=== PATIENT | female | born 1990 | race Caucasian/White ===

== ENCOUNTER 2016-10-28 01:17 | Inpatient (IN) | payer OTHER ==
[~2016-10-28] VITALS: Ht 167.6 cm; Wt 84.8 kg
[~2016-10-28 01:17] MED LIST: ONDA-53 PO
[2016-10-28] MEDS ORDERED: Lactated Ringer's 1,000 ML IV PRN (09:13)
[2016-10-28] MEDS ORDERED: Methylergonovine 0.2 mg/mL Inj IM PRN ×2 (09:15→19:00)
[2016-10-28] MEDS ORDERED: Carboprost 250 mCg/mL Inj IM PRN ×2 (09:15→19:00)
[2016-10-28] MEDS ORDERED: diphenhydrAMINE 50 mg Capsule PO PRN (09:15)
[2016-10-28] MEDS ORDERED: Ondansetron 2 mg/mL 2 mL Inj IVPUSH PRN (09:15)
[2016-10-28] MEDS ORDERED: Oxytocin 30 Units/500 mL LR 30 UNITS in IV Premix 1 EACH IV PRN ×2 (09:15→19:00)
[2016-10-28] MEDS ORDERED: Oxytocin 10 Unit/mL Inj IM PRN ×2 (09:15→19:00)
[2016-10-28] MEDS ORDERED: Heparin 1,000 Units/mL 10 mL DVT/PE Bolus Inj IVPUSH ONE (09:15)
[2016-10-28] MEDS ORDERED: Hemorrhage Kit, Post Partum XX ONE ×2 (09:15→19:00)
[2016-10-28] MEDS ORDERED: Sodium Chloride LOK Flush 10 mL Syringe IVFLUSH PRN (09:15)
[2016-10-28 10:22] LABS: Mean Corpuscular Volume 87.5 fL (81-100)
[2016-10-28] MEDS: Misoprostol 25 mCg/0.25 Tablet VAGINAL SCH ×3 (10:46→17:15)
--- NOTE | 2016-10-28 13:27 | HP ---
[address] [address] HISTORY AND PHYSICAL PATIENT: KAREEN SOUTH : 1990 MR#: [id number] ADMIT: 10/28/2016 JOB ID: [id number] CHIEF COMPLAINT: Induction of labor. HISTORY OF PRESENT ILLNESS: This is a 26-year-old G 2, P 1-0-0-1 female presenting at 39 + 2 weeks gestational age for an induction of labor due to history of a pulmonary embolus previously while on oral contraceptive pills after a hernia repair as well as large for gestational age with a EFW at 94th percentile with an abdominal circumference of 96th percentile at 32 weeks gestation. PAST MEDICAL HISTORY: Provoked pulmonary embolus after hernia repair procedure on oral contraceptive pills. PAST SURGICAL HISTORY: Hernia repair. OBSTETRIC HISTORY: She is a G 2, P 1. Her last delivery was in 2013. It was a normal spontaneous vaginal delivery. It was an uncomplicated male . SOCIAL HISTORY: No tobacco, alcohol or drug use. FAMILY HISTORY: Noncontributory. MEDICATIONS: Include: She had been on Lovenox 40 mg subcu daily. This was transitioned to heparin 10,000 units b.i.d. at 36 weeks as well as vitamins and omeprazole. ALLERGIES: She had a reaction to VICODIN which caused hives. OBJECTIVE: Blood pressure is 118/77, her heart rate is 91, her respiratory rate is 17, her temperature is 97.9. In general, she is awake, alert, oriented, in no acute distress. Her heart shows regular rate and rhythm. Her lungs are clear to auscultation bilaterally. Her abdomen was soft, nontender and nondistended. Her size is appropriate for dates. EFW is approximately 8.5 pounds. Her extremities show no tenderness or edema. Her cervical check is noted to be 2 cm dilated, 50% effaced, and -3 station by the nurse. heart tones show 130s baseline, moderate variability with accelerations present. She did have one variable deceleration to at 70 that resolved over approximately 60 seconds but was sporadic. LABORATORY DATA: She was blood type O-positive, antibody screen negative, rubella immune, varicella immune, hep B surface antigen negative, RPR nonreactive, HIV negative, and GBS negative. ASSESSMENT/PLAN: This is a 26-year-old 2 Para 1-0-0-1 female at 39 plus 2 weeks gestational age admitted for an induction of labor due to history of pulmonary embolus as well as large for gestational age. Her last dose of heparin was yesterday evening. She has held her morning dose today and this will be held until . Her cervix is not favorable at this time and cervical ripening will be completed using Cytotec and transitioning to Pitocin when her cervix is favorable. She is O positive, rubella immune and varicella immune and does not need any vaccinations. She is GBS negative and no antibiotics are indicated. Given her history of large for gestational age. We will be prepared for a shoulder dystocia though she is clinically size appropriate for dates today. MTDD
[2016-10-28] MEDS: Lactated Ringer's 1,000 ML IV SCH ×4 (13:51→17:01)
[2016-10-28] MEDS: fentaNYL-PF 50 mCg/mL 2 mL Inj IVPUSH PRN ×2 (16:26→16:40)
[2016-10-28] MEDS ORDERED: Lactated Ringer's 500 ML IV ONE (17:01)
--- NOTE | 2016-10-28 17:03 | PCM.HPANE ---
Patient Data Surgeon Admitting Provider:Tomasz Jeffrey MD Attending Provider:Tomasz Jeffrey MD Primary Care Physician:Osmany Ocampo MD Other Provider: Reason for Visit Term Induction TERM INDUCTION Ht/WT & BMI Body Mass Index Allergies Coded Allergies: hydrocodone (Verified Allergy, Unknown, 08/07/15) Past Anesthesia History Anesthesia History: Denies:: Abnormal Airway, Anesthesia Reactions, Difficult Intubation, Fam Anesthesia Reaction, Fam Malignant Hypertherm, Malignant Hyperthermia Additional Information: epidural didn't work last . Diabetes History Hx Diabetes?: No MRSA MRSA: No Medications Last Dose Blood Thinner: October 27, 2016 (PM 10,000 heparin sq) Hypertension Medication: No Home Meds Incl Beta Morgan: No Active Scripts Ondansetron 4 Mg Tablet4 Mg PO TID nausea #60 TABLET Prov:Tomasz Jeffrey MD 08/22/16 History History of ENT Problems?: No HEENT History: Denies:: Abnormal Airway Cataracts Difficult Intubation Dysphagia Glaucoma Hearing Problem Sinus Problem TMJ Denture Type: None Teeth Condition: Within Normal Limits Hx of Heart Problems?: No Cardiovascular History: Denies:: AICD Abdominal Aortic Aneurism Atrial Fibrillation Cardiac Surgery Chest Pain Congestive Heart Failure Coronary Artery Disease Edema Heart Murmur Hypertension Irregular Heartbeat Pacemaker Peripheral Vascular Rheumatic Fever Thrombophlebitis Valvular Heart Disease Hx of Respiratory Problem?: No Respiratory History: Denies:: Asthma COPD Chest Surgery Cough Dyspnea Emphysema Hemoptysis Oxygen Administration Pneumonia Pulmonary Embolism Tuberculosis Use of C-PAP Machine Use of Inhalers / NEBS Hx Neurologic Problems?: No Neurological History: Denies:: Alzheimer's Disease CVA Dementia Dizziness Headaches Multiple Sclerosis Parkinson's Disease Peripheral Neuropathy Seizures TIA Hx of GI Problems?: No Gastrointestinal History: Denies:: Cirrhosis Diverticulitis Gall Bladder Disease Gastroesphageal Reflux Gastrointestinal Bleeding Heartburn Hepatitis Hiatal Hernia Liver Disease Rectal Bleeding Hx of Problems?: No Genitourinary History: Denies:: HX of Hemodialysis Kidney Stones Urinary Tract Infection HX of Peritoneal Dialysis: No Female Hx: Positive for:: Currently Skin History: Denies:: History Skin Disorders? Pressure Ulcers Hx Musculoskeletal Problems?: No Musculoskeletal History: Denies:: Back Injury Degenerative Joint Fibromyalgia Joint Replacement Musculoskeletal Trauma Myasthenia Gravis Osteoarthritis Rheumatoid Arthritis Systemic Lupus Hx of Psycho/Social Problems?: No Psycho Social History: Denies:: Anxiety Bipolar Disorder Hx Depression Suicide Attempt Hx Surgeries?: Yes Hx Any Other Health Problems?: No Other History: Denies:: Cancer Endocrine Disease Hospitalization Thyroid Disease History Blood Transfusions: Denies:: Accept Blood Products? Blood Transfuse Reaction Blood Transfusions Smoking Status: Never Smoker Stop/Bang SAUD Risk Assessment: Low Risk, <3 Yes Risk Assessment Category Category 1A: Patient has history of documented sleep apnea, and HAS NOT received any narcotic, sedative or anesthesia administration during this stay. Category 1B: Patient has history of documented sleep apnea, and HAS received any narcotic , sedative or anesthesia administration during this stay Category 2: Patient has SUSPECTED Obstructive Sleep Apnea, and HAS received any narcotic , sedative or anesthesia administration during this stay. Category 3: Patient has SUSPECTED Obstructive Sleep Apnea and HAS NOT received narcotic, sedative or anesthesia administration during this stay. Category 4: Outpatient in Procedural Areas with known sleep apnea or who screen positive for High Risk via the STOP/BANG questionnaire. Exam Exam General Appearance: Alert HEENT/AIRWAY: MP 1 Lungs: Clear to Auscultation Heart: Exam Unremarkable Meds/Labs/Diagnostics Admission Meds Current Medications Lactated Ringer's (Lr) 1,000 ml @ 125 mls/hr Q8H IV Last administered on 16:25; Start 10/28/16 at 09:13 Misoprostol (Cytotec) 25 mcg Q4H VAGINAL Last administered on 10/28/16 10:46; Start 10/28/16 at 09:15 Labs Test 10/28/16 10:00 White Blood Count 7.0th/mm3 (3.8-10.1) Red Blood Count 4.49mil/mm3 (3.90-5.20) Hemoglobin 13.0g/dL (12.0-15.6) Hematocrit 39.3% (35.0-46.0) Mean Corpuscular Volume 87.5fL (81-100) Mean Corpuscular Hemoglobin 29.0pg (27.0-35.0) Mean Corpuscular Hemoglobin Concent 33.1% (32.0-37.0) Red Cell Distribution Width 14.1% (12.3-15.4) Platelet Count 145bil/L (150-400) Plan Impression Patient chart reviewed, patient interviewed and anesthestic plan with risks, benefits, and alternatives discussed, and informed consent obtained. NPO per Anesth. Guidelines: Yes ASA Physical Status: ASA2 Mod Systemic Disease Anesthetic Plan: Epidural Bene/Risks/Altern/Consents: Yes HP Complete Prior to Induction: Yes Troy Hubbard MD October 28, 2016 17:03
[2016-10-28] MEDS ORDERED: fentaNYL 2 mCg/mL-Bupiv 0.125% 100 ML EPIDURAL SCH (17:05)
[2016-10-28] MEDS ORDERED: EPHEDrine Sulfate 50 mg/mL Inj IVPUSH PRN (17:05)
[2016-10-28] MEDS ORDERED: Atropine 1 mg/10 mL (Code) Syringe IVPUSH PRN (17:05)
--- NOTE | 2016-10-28 18:14 | PCM.PNOBIP ---
Subjective Date of Service October 28, 2016 Subjective Received one dose of cytotec and then ruptured spontaneously- with quick change to 7cm- requesting epidural. Pain Management: Epidural Labs Laboratory Tests 10/28/16 10:00: White Blood Count 7.0, Red Blood Count 4.49, Hemoglobin 13.0, Hematocrit 39.3, Mean Corpuscular Volume 87.5, Mean Corpuscular Hemoglobin 29.0, Mean Corpuscular Hemoglobin Concent 33.1, Red Cell Distribution Width 14.1, Platelet Count 145 Exam Vital Signs Vital Signs Contraction frequency in minutes: MVUs: Heart Tracings Heart Tones Baseline 140/moderate/ occasional early and variable decels, prior late and deep decelerations have resolved. bpm Tocometry/IUPC Contraction frequency in minutes: MVUs: Sterile Vaginal Exam Cervical Dilation: 7 cms Cervical Effacement: 80 % Station: 0 Exam General: Alert, Oriented X3 OB Intrapartum Assessment/Plan Intrapartum plan: Continue expected management Sondra Barcenas MD October 28, 2016 18:14
[2016-10-28] MEDS ORDERED: Lactated Ringer's 1,000 ML IV SCH (18:58)
[2016-10-28] MEDS ORDERED: LANOlin HPA 7 Gm Ointment TOPICAL PRN (19:00)
[2016-10-28] MEDS ORDERED: Witch Hazel-Glycerin Pads TOPICAL PRN (19:00)
[2016-10-28] MEDS ORDERED: Benzocaine (Dermoplast) 20% 60 Gm Spray TOPICAL PRN (19:00)
--- NOTE | 2016-10-28 20:46 | OP ---
[address] [address] OPERATIVE REPORT PATIENT: KAREEN SOUTH : 1990 MR#: [id number] ADMIT: 10/28/2016 JOB ID: [id number] DATE OF SURGERY: 10/28/2016 PREOPERATIVE DIAGNOSIS(ES): 1. A 39 plus 2 week intrauterine here for induction of labor. 2. History of a pulmonary embolus that occurred following a hernia repair surgery while on oral contraceptive pills previously. 3. Large for gestational age at 94 percentile EFW at 32 weeks of gestation which appeared to be resolved as progressed. POSTOPERATIVE DIAGNOSIS(ES): 1. A 39 plus 2 week intrauterine here for induction of labor. 2. History of a pulmonary embolus that occurred following a hernia repair surgery while on oral contraceptive pills previously. 3. Large for gestational age at 94 percentile EFW at 32 weeks of gestation which appeared to be resolved as progressed. PROCEDURE PERFORMED: Spontaneous vaginal delivery. SURGEON: Sondra Barcenas MD. ANESTHESIA: Epidural. ESTIMATED BLOOD LOSS: 200 cc. FLUID REPLACEMENT: Crystalloid. URINE OUTPUT: Straight catheterized 400 cc of clear yellow urine. FINDINGS: Liveborn female infant, born at 1847 hours on 10/28 16 with Apgars of 8 at one minute, 9 at five minutes with spontaneous cry and spontaneous movement of all four extremities. COMPLICATIONS: None apparent. INDICATIONS: This is a 26-year-old, G2, P1-0-0-1 female presenting at 39 plus 2 weeks gestation for a planned induction of labor due to history of pulmonary embolus as well as large for gestational age. Her was noted by the same. She had been on Lovenox 40 mg subcutaneously daily, and she had been transitioned to heparin 10,000 units b.i.d. starting at 36 weeks . She took her last dose of heparin at 8:30 p.m. the night prior to admission and in the morning of the she came in for a planned induction. She was checked at that time, and noted to be 2 cm dilated so a single dose of Cytotec was placed. She did have intermittently nonreassuring heart tones with late decelerations that resolved with repositioning of fluid boluses. After her dose of Cytotec, she spontaneously ruptured on her own, requested an epidural for pain relief and very quickly progressed to complete. At this point she began to push, bringing the 's vertex to the perineum. PROCEDURE: The patient noted to be complete. She was placed in dorsal lithotomy position and prepped and draped in usual sterile fashion for delivery. She started to push and the head delivered spontaneously in an KEARA position over an intact perineum. The anterior shoulder delivered easily, followed by the posterior shoulder and then the infant was easily delivered. After a 60 second cord clamping delay, the cord was clamped and cut and the infant was placed on the mother's abdomen. Cord blood was then obtained. The placenta delivered intact spontaneously and was passed off the table. Pitocin was started per protocol. Examination of the uterus on bimanual exam revealed no remaining placental membranes. Examination of the cervix, vaginal vault and perineum showed no lacerations. The patient tolerated this procedure well, recovered in labor and delivery with her . All sponge, needle, and instrument counts were correct. weight was not available at the time of the dictation but did appear to be at an average gestational age. Her Lovenox, which had been held during her induction, will be started in the morning of the .
[2016-10-29 07:22] LABS: Mean Corpuscular Hemoglobin 29.1 pg (27.0-35.0); Mean Corpuscular Volume 88.9 fL (81-100)
--- NOTE | 2016-10-29 07:51 | PCM.DIMED ---
Discharge Instructions Date of Service October 29, 2016 Dates of Hospitalization October 28, 2016 at 08:45 Diet Discharge Diet: No restrictions Activity Discharge Activity: No restrictions Call your provider Call your provider for: Fever or Chills, Shortness of breath, Bleeding, Chest pain, Vomitting, Excessive diarrhea, Weakness (unilateral) Patient Instructions Follow-up with PCP in: 6 weeks Tomasz Jeffrey MD October 29, 2016 07:51
[2016-10-29] MEDS ORDERED: ENOX40DI8 SUBQ (07:55)
[2016-10-29] MEDS ORDERED: IBUP800T28 PO (07:55)
[2016-10-29] MEDS ORDERED: FERR-74 PO (07:55)
[2016-10-29] MEDS ORDERED: DOCU-41 PO (07:55)
[2016-10-29] MEDS ORDERED: Ascorbic Acid 500 mg Tablet PO SCH (08:00)
--- NOTE | 2016-10-29 08:13 | DIS ---
[address] [address] DISCHARGE SUMMARY PATIENT: KAREEN SOUTH : 1990 MR#: [id number] ADMIT: 10/28/2016 JOB ID: [id number] DIS: 10/29/2016 ADMITTING DIAGNOSES: 1. A 26-year-old, 2, para 1, at 39 weeks and 2 days, induction of labor. 2. History of pulmonary embolus. 3. Suspected macrosomia. DISCHARGE DIAGNOSES: 1. A 26-year-old, 2, para 2. 2. Status post spontaneous vaginal delivery at term. HOSPITAL COURSE: The patient is a 26-year-old, 2, para 2 now, who was admitted to Labor and Delivery in the morning of October 28, 2016, for induction of labor because of prior history of pulmonary embolus while on oral contraceptive pills after hernia repair. The patient was taking Lovenox throughout her that was switched on heparin at 36 weeks. The dose of heparin was 10,000 units b.i.d. beginning at 36 weeks, it was discontinued the night prior to her admission to the hospital. care was otherwise uncomplicated. She is blood group and type O-positive, GBS negative. Rubella and varicella immune. The patient was examined at admission and on pelvic exam, the cervix was 2 cm dilated. She was given Cytotec one dose, and was progressing fairly well. Underwent spontaneous rupture of membranes, the patient received an epidural. She progressed on her own after the one dose of Cytotec, underwent spontaneous vaginal delivery at 6:47 p.m. on October 28, 2016, and delivered a female with Apgars 9 at one minute and 9 at five minutes. The patient has not had any lacerations. On day one, she was doing well, breast-feeding, not complaining about any excessive pain, ambulating. The patient was restarted on Lovenox. She was stable, labs showed WBC count 7.7, hemoglobin 11, hematocrit 33.6, platelet count 158. The fundus was firm, the patient was afebrile. There was no vaginal bleeding or abnormal vaginal discharge. The patient was discharged home on day one, with all discharge criteria met. DISCHARGE MEDICATIONS: She received discharge medications includin. Lovenox 40 mg subcu daily. 2. Motrin 800 mg p.o. t.i.d. p.r.n. 3. Colace 100 mg p.o. b.i.d. FOLLOW UP: Follow up visit in the clinic is scheduled in six weeks.
[2016-10-29] MEDS: Lactated Ringer's 1,000 ML IV SCH ×2 (09:01→09:13)
[2016-10-29] MEDS: Misoprostol 25 mCg/0.25 Tablet VAGINAL SCH (09:15)
[2016-10-29 10:52] VITALS: BP 103/59; PULSE 84; RESP 17
== END 2016-10-29 12:39 | disposition home or self-care (01) | DRG 775 ==
LOC: FBC 08:45
PROVIDERS: ADMIT Legal Medicine; ATTEND Obstetrics & Gynecology
PROC: 10E0XZZ Delivery of Products of Conception, External Approach (ICD-10-PCS; principal; 2016-10-28)
PROC: 3E033VJ Introduction of Other Hormone into Peripheral Vein, Percutaneous Approach (ICD-10-PCS; 2016-10-28)
PROC: 10H07YZ Insertion of Other Device into Products of Conception, Via Natural or Artificial Opening (ICD-10-PCS; 2016-10-28)
DX: O75.89 Other specified complications of labor and delivery (principal); I27.82 Chronic pulmonary embolism; Z79.01 Long term (current) use of anticoagulants; Z37.0 Single live birth; Z3A.39 39 weeks gestation of pregnancy

== ENCOUNTER 2016-12-27 10:32 | Emergency (ER) | payer OTHER ==
[~2016-12-27] VITALS: Ht 167.6 cm; Wt 78.2 kg
[~2016-12-27 10:32] MED LIST changes: +DOCU-41 PO; +ENOX40DI8 SUBQ; +FERR-74 PO; +IBUP800T28 PO; -ONDA-53 PO
[2016-12-27 10:34] VITALS: BP 127/83; PULSE 88; RESP 18; O2SAT 99
--- NOTE | 2016-12-27 11:11 | ED.REPORT ---
HPI-General Illness Date of Service Dec 27, 2016 ED Provider: History of Present Illness: 26-year-old female here for breast pain. She has had trouble with thrush for 1-2 week she has seen her primary care 2 times she was recently started on topical nystatin on both breasts as well as Diflucan. A few days ago she had cracks on her breast as well. The cracks are still there but now her breasts are very very painful. She could barely get out of bed they were so painful. She has no fever. She is still breast-feeding and pumping although it is very painful for her. No discharge noted out of breast. Baby is doing fine and her symptoms of thrush have decreased. She has 1 more Diflucan to take in 2 days. Patient states she does not feel engorged. No history of mastitis. Nursing Notes Stated Complaint: BILATERAL BREAST PAIN/THRUSH/LACTATING Chief Complaint: General Complaint Nursing Notes Reviewed: Yes Allergies: Coded Allergies: hydrocodone (Verified Allergy, Unknown, 08/07/15) Scheduled Cephalexin (Keflex) 500 Mg Capsule 500 MG PO QID Clotrimazole 2% (Gyne-Lotrimin 3 2%) 21 Gm Cream.appl 21 GM TOPICAL BID Docusate Sodium (Colace) 100 Mg Capsule 100 MG PO BID Enoxaparin Sodium (Enoxaparin Sodium) 40 Mg/0.4 Ml Syringe 40 MG SUBQ DAILY Ferrous Sulfate (Feosol) 325 Mg Tablet 325 MG PO BIDWM Scheduled PRN Ibuprofen (Ibuprofen) 800 Mg Tablet 800 MG PO Q6H PRN PRN For Pain General Time Seen by MD: 11:04 Chief Complaint Chest pain (breast), Rash Hx Obtained From: Patient Arrived By: Walk-in Sudden in Onset?: No Onset Occurred: 1 week ago Symptom Duration: Constant Location: : Chest (breast) Severity: Current: Severe Severity: Maximum: Severe Similar Sx Previous: Yes Past Medical History Past Medical History Pulmonary embolism 1.5 yrs [employer] Past Surgical History Umbilical Hernia Repair 1.5 years [employer] Family History Noncontributive Smoking History Never Smoker Social History Alcohol Use: Denies alcohol use Drug Use: Denies drug use Other Social History: Good social support, Lives with children, Local resident Ambulatory Status Independent Review of Systems Full Review of Systems Constitutional: Denies: Chills, Fatigue, Fever Respiratory: Denies: Dyspnea on exertion Cardiovascular: Denies: Chest pain GI: Denies: Abdominal pain, Nausea, Vomiting Female: Denies: Vaginal discharge Skin: Reports Rash, Reports Swelling Complete sys rev & neg: except as marked. Physical Exam Vital Signs Vital Signs Date Time Temp Pulse Resp B/P Pulse Ox O2 Delivery O2 Flow Rate FiO2 12/27/16 12:38 37.0 80 16 128/80 99 Room Air 12/27/16 10:34 37.0 88 18 127/83 99 Room Air Initial VS: Reviewed, Vital signs normal General/Constitutional: Well-developed, Well-nourished Head / Eyes: Atraumatic, Normocephalic, PERRL Neck: Supple, Non-tender, Full range of motion Respiratory: Breath sounds normal, Clear to auscultation, No respiratory distress Cardiovascular: Regular rate & rhythm, Heart sounds normal, Intact distal pulses Abdomen / GI: Soft, Non-tender, No guarding, No rebound, No distention Skin: Warm, Dry, No cyanosis Rash / Lesion Notes: bilateral breasts are exquisitely tender to touch. Right side with erythema at 6:00 to the [place]. This area even more tender to touch. Small red streak going up the left side of right breast. No cracks noted. Left side without visible abnormality just exquisitely tender. Re-Eval/Medical Decision Med Decision/Clinical Course Likely got a superficial infection after having the open sores from the fungal infection will treat with topical antifungals as well as oral antibiotics. She will continue with her Diflucan. Discharge & Departure Shift Change Sign-Out Response to Therapy: Improved Primary Impression: Candidal skin infection Additional Impression: Cellulitis of breast Disposition: Home Discharge Condition Condition: Stable Patient Instructions: Mastitis (ED) Additional Instructions: Thank you for your visit today. You are being treated for a candidal infection of your breast as well as a bacterial infection of the breast. Continue to take your Diflucan. Start oral antibiotics tomorrow. He received today's dose and the injection. Start applying the topical antifungal U prescribed today as directed. Do your best to continue breast-feeding, even though it is painful. High levels of the cephalexin are present 4-5 hours after her dose. If your baby is having diarrhea or stomach upset try to avoid breast feeding during this time.. The injection and got today of Rocephin will be in your body for 24 hours. you may take Tylenol for the pain. Follow-up with your PCP in 2 days for recheck. Return to ER if you get fevers or worsening pain despite treatment Referrals: Osmany Ocampo MD (PCP) EDSupervising Provider for APC: Ryan Dozier MD copies to: Osmany Ocampo MD, Linnea K [facility] Dec 27, 2016 11:11
[2016-12-27] MEDS ORDERED: cefTRIAXone Inj 1,000 MG, Lidocaine PF 1% Inj 2.1 ML in Syringe 0 EACH IM ONE (11:55)
[2016-12-27] MEDS ORDERED: CEPH-512 PO (11:55)
[2016-12-27] MEDS ORDERED: CLOT21CR7 TOPICAL (11:56)
[2016-12-27 12:38] VITALS: BP 128/80; PULSE 80; RESP 16; O2SAT 99
== END 2016-12-27 12:39 | disposition home or self-care (01) ==
LOC: SED 10:34
DX: N61.0 Mastitis without abscess (principal); B37.2 Candidiasis of skin and nail; Z88.5 Allergy status to narcotic agent
CPT/HCPCS: 96372; 99283; J0696